=== PATIENT | female | born 1945 | race Caucasian/White ===

== ENCOUNTER 2017-10-17 05:38 | Outpatient (CLI) | payer MEDICARE, MEDICAID ==
[~2017-10-17] VITALS: Ht 157.5 cm; Wt 70.8 kg
[2017-10-17] MEDS ORDERED: AMLO10TA2 PO (12:53)
[2017-10-17] MEDS ORDERED: CELE-63 PO (12:53)
[2017-10-17] MEDS ORDERED: ATOR10TA66 PO (12:53)
[2017-10-17] MEDS ORDERED: METO-370 PO (12:53)
[2017-10-17] MEDS ORDERED: METF500T5 PO (12:53)
== END 2017-10-17 12:54 ==
LOC: PREOP 05:38
PROVIDERS: ATTEND Specialist
DX: Z01.818 Encounter for other preprocedural examination (principal)

== ENCOUNTER 2017-10-19 07:28 | Day surgery (SDC) | payer MEDICARE, MEDICAID ==
[~2017-10-19] VITALS: Ht 157.5 cm; Wt 70.8 kg
[~2017-10-19 07:28] MED LIST: AMLO10TA2 PO; ATOR10TA66 PO; CELE-63 PO; METF500T5 PO; METO-370 PO
--- OUTSIDE RECORDS SUMMARY | 2017-10-19 07:32 | XMS REPORT ---
Author Author SOCRATES ELMORE Organization [facility] Address [address] [place] [address] Care Team Providers Care Nurse Receptionist Name Role Phone SOCRATES ELMORE Unavailable PROBLEMS Type Condition ICD9-CM Code [id number] Code Onset Dates Condition Status SNOMED Code Problem Arthritis M19.90 Active 8509594 Problem Essential hypertension I10 Active 83693611 ALLERGIES No Known Allergies ENCOUNTERS Encounter Location Date Diagnosis [place] [address] [address] Oct, [place] [address] [address] Oct, Acute nasopharyngitis J00 [facility] [address] [address] September, [facility] [address] [address] Aug, [facility] [address] [address] Jun, [facility] [address] [address] Jun, Nail hypertrophy L60.2 ; Onychomycosis B35.1 and Self-care deficit for hygiene R46.0 [facility] [address] [address] May, Arthritis M19.90 and Essential hypertension I10 [facility] [address] [address] Apr, Arthritis M19.90 [facility] [address] [address] Apr, [facility] [address] [id number] [address] Apr, Nail hypertrophy L60.2 ; Onychomycosis B35.1 and Self-care deficit for hygiene R46.0 [facility] [address] [id number], [place] [address] Apr, [facility] [address] [address] Apr, [facility] [address], [place] [address] Apr, [facility] [address], [place] [address] Apr, Essential hypertension I10 ; Weight loss R63.4 and Prediabetes R73.03 IMMUNIZATIONS No Known Immunizations SOCIAL HISTORY Never Assessed REASON FOR VISIT Toenail clipjonnathan-Clayton AGUILAR PLAN OF CARE Activity Details Follow Up 6 Weeks Reason:nail trimming VITAL SIGNS Height 62 in 2017-05-01 Weight 153.4 lbs 2017-05-01 Temperature 98.4 degrees Fahrenheit 2017-05-01 Heart Rate 102 bpm 2017-05-01 Respiratory Rate 20 2017-05-01 BMI 28.05 kg/m2 2017-05-01 Blood pressure systolic 136 mmHg 2017-05-01 Blood pressure diastolic 76 mmHg 2017-05-01 MEDICATIONS Medication Instructions Dosage Frequency Start Date End Date Duration Status Qvar 80 MCG/ACT Inhalation Twice a day 1 puff 12h Active Metoprolol Succinate ER 50 mg Orally Once a day 1 tablet 24h Active Norvasc 10 mg Orally Once a day 1 tablet 24h Active Lipitor 10 mg Orally Once a day 1 tablet 24h Active Metformin HCl 500 mg Orally Twice a day 1 tablet with meals 12h Active RESULTS No Results PROCEDURES Procedure Date Ordered Result Body Site TRIM NAIL(S) 2017-05-01 N/A TRIM NAIL(S) May 01, 2017 [facility] VISIT ESTABLISHED PATIENT May 01, 2017 INSTRUCTIONS MEDICATIONS ADMINISTERED No Known Medications MEDICAL (GENERAL) HISTORY Type Description Date Medical History diabetes Medical History hypertension Surgical History tonsillectomy Surgical History broken fingers surgery Surgical History teeth surgery Surgical History partial hysterectomy Surgical History broken hand with plate Surgical History glaucoma surgery Hospitalization History partial hysterectomy Hospitalization History broken hand surgery
--- OUTSIDE RECORDS SUMMARY | 2017-10-19 07:32 | XMS REPORT ---
Author Author TRISTON SANTOS Organization [facility] Address [address] [place] [address] Care Team Providers Care Bio Medical Technician Name Role Phone TRISTON SANTOS Unavailable PROBLEMS Type Condition ICD9-CM Code [id number] Code Onset Dates Condition Status SNOMED Code Problem Arthritis M19.90 Active 8689193 Problem Essential hypertension I10 Active 24021099 ALLERGIES No Information ENCOUNTERS Encounter Location Date Diagnosis [place] [address] [address] Oct, [place] [address] [address] September, [place] [address] [address] Aug, [facility] [address] [address] Jun, [place] [address] [address] Jun, Nail hypertrophy L60.2 ; Onychomycosis B35.1 and Self-care deficit for hygiene R46.0 [place] [address] [address] [place] [id number] [place] [address] May, Arthritis M19.90 and Essential hypertension I10 [place] [address] [address] Apr, Arthritis M19.90 [place] [address] [address] [place] [id number] [place] [address] Apr, [place] [address] [address] Apr, Nail hypertrophy L60.2 ; Onychomycosis B35.1 and Self-care deficit for hygiene R46.0 [facility] [address] [place] [id number] [address] Apr, [facility] [address] [place] [id number] [address] Apr, [facility] [address] [place] [id number] [address] Apr, [facility] [address] [place] [id number] [address] Apr, Essential hypertension I10 ; Weight loss R63.4 and Prediabetes R73.03 IMMUNIZATIONS No Known Immunizations SOCIAL HISTORY Never Assessed REASON FOR VISIT Waiting for call back PLAN OF CARE VITAL SIGNS MEDICATIONS Unknown Medications RESULTS No Results PROCEDURES No Known procedures INSTRUCTIONS MEDICATIONS ADMINISTERED No Known Medications MEDICAL (GENERAL) HISTORY Type Description Date Medical History diabetes Medical History hypertension Surgical History tonsillectomy Surgical History broken fingers surgery Surgical History teeth surgery Surgical History partial hysterectomy Surgical History broken hand with plate Surgical History glaucoma surgery Hospitalization History partial hysterectomy Hospitalization History broken hand surgery
--- OUTSIDE RECORDS SUMMARY | 2017-10-19 07:32 | XMS REPORT ---
Author Author TRISTON SANTOS Organization [facility] Address [address] [place] [address] Care Team Providers Care Organizational Research Consultant Name Role Phone TRISTON SANTOS Unavailable PROBLEMS Type Condition ICD9-CM Code [id number] Code Onset Dates Condition Status SNOMED Code Problem Arthritis M19.90 Active 3206059 Problem Essential hypertension I10 Active 39688934 ALLERGIES No Information ENCOUNTERS Encounter Location Date Diagnosis [place] [address] [address] Oct, [place] [address] [address] September, [place] [address] [address] Aug, [facility] [address] [address] Jun, [place] [address] [address] Jun, Nail hypertrophy L60.2 ; Onychomycosis B35.1 and Self-care deficit for hygiene R46.0 [place] [address] [place] [id number] [place] [address] May, Arthritis M19.90 and Essential hypertension I10 [place] [address] [address] Apr, Arthritis M19.90 [place] [address] [address] [place] [id number] [place] [address] Apr, [place] [address] [address] Apr, Nail hypertrophy L60.2 ; Onychomycosis B35.1 and Self-care deficit for hygiene R46.0 [facility] [address] [facility] [id number] [place] [address] Apr, [facility] [address] [facility] [id number] [address] Apr, [facility] [address] [facility] [id number] [address] Apr, [facility] [address] [facility] [id number] [address] Apr, Essential hypertension I10 ; Weight loss R63.4 and Prediabetes R73.03 IMMUNIZATIONS No Known Immunizations SOCIAL HISTORY Never Assessed REASON FOR VISIT Med Refills PLAN OF CARE VITAL SIGNS MEDICATIONS Medication Instructions Dosage Frequency Start Date End Date Duration Status Qvar 80 MCG/ACT Inhalation Twice a day 1 puff 12h Active Norvasc 10 mg Orally Once a day 1 tablet 24h Active Metoprolol Succinate ER 50 mg Orally Once a day 1 tablet 24h Active Lipitor 10 mg Orally Once a day 1 tablet 24h Active Metformin HCl 500 mg Orally Twice a day 1 tablet with meals 12h Active RESULTS No Results PROCEDURES No Known procedures [...]
--- OUTSIDE RECORDS SUMMARY | 2017-10-19 07:32 | XMS REPORT ---
Author Author TRISTON SANTOS Organization [facility] Address [address] [place] [address] Care Team Providers Care Electronic Communications Technician Name Role Phone TRISTON SANTOS Unavailable PROBLEMS Type Condition ICD9-CM Code [id number] Code Onset Dates Condition Status SNOMED Code Problem Arthritis M19.90 Active 3834259 Problem Essential hypertension I10 Active 89609732 ALLERGIES No Information ENCOUNTERS Encounter Location Date Diagnosis [place] [address] [address] Oct, [place] [address] [address] September, [place] [address] [address] Aug, [facility] [address] [address] Jun, [place] [address] [address] Jun, Nail hypertrophy L60.2 ; Onychomycosis B35.1 and Self-care deficit for hygiene R46.0 [place] [address] [place] [id number] [place] [address] May, Arthritis M19.90 and Essential hypertension I10 [place] [address] [address] Apr, Arthritis M19.90 [place] [address] [address] [place] [id number] [place] [address] Apr, [place] [address] [address] Apr, Nail hypertrophy L60.2 ; Onychomycosis B35.1 and Self-care deficit for hygiene R46.0 [facility] [address] [place] [id number] [address] Apr, [facility] [address] [place] [id number], [place] [address] Apr, [facility] [address] [place] [id number], [place] [address] Apr, [facility] [address] [place] [id number], [place] [address] Apr, Essential hypertension I10 ; Weight loss R63.4 and Prediabetes R73.03 IMMUNIZATIONS No Known Immunizations SOCIAL HISTORY Never Assessed REASON FOR VISIT PLAN OF CARE VITAL SIGNS MEDICATIONS Unknown [...]
--- OUTSIDE RECORDS SUMMARY | 2017-10-19 07:32 | XMS REPORT ---
Author Author TRISTON SANTOS Organization [facility] Address [address] [place] [address] Care Team Providers Care Acute Coordinator Name Role Phone TRISTON SANTOS Unavailable PROBLEMS Type Condition ICD9-CM Code JQQ57-XB Code Onset Dates Condition Status SNOMED Code Problem Arthritis M19.90 Active 4474902 Problem Essential hypertension I10 Active 27166349 ALLERGIES No Known Allergies ENCOUNTERS Encounter Location Date Diagnosis [place] [address] [address] Oct, [facility] [address] [address] Oct, Acute nasopharyngitis J00 [facility] [address] [address] September, [facility] [address] [address] Aug, [facility] [address] [address] Jun, [facility] [address] [address] Jun, Nail hypertrophy L60.2 ; Onychomycosis B35.1 and Self-care deficit for hygiene R46.0 [facility] [address] [address] May, Arthritis M19.90 and Essential hypertension I10 [facility] [address] [address] Apr, Arthritis M19.90 [facility] [address] [address] Apr, [facility] [address] [facility] [id number] [address] Apr, Nail hypertrophy L60.2 ; Onychomycosis B35.1 and Self-care deficit for hygiene R46.0 [facility] [address] [facility] [id number], [place] [address] Apr, [facility] [address], [place] [address] Apr, [facility] [address] [place] [id number], [place] [address] Apr, [facility] [address], [place] [address]- [address] Apr, Essential hypertension I10 ; Weight loss R63.4 and Prediabetes R73.03 IMMUNIZATIONS No Known Immunizations SOCIAL HISTORY Never Assessed REASON FOR VISIT Pain (acute) Leg-[place] JEFF PLAN OF CARE Activity Details Follow Up 4 Weeks Reason: VITAL SIGNS Height 62 in 2017-05-03 Weight 153.2 lbs 2017-05-03 Temperature 98.5 degrees Fahrenheit 2017-05-03 Heart Rate 84 bpm 2017-05-03 Respiratory Rate 18 2017-05-03 BMI 28.02 kg/m2 2017-05-03 Blood pressure systolic 130 mmHg 2017-05-03 Blood pressure diastolic 68 mmHg 2017-05-03 MEDICATIONS Medication Instructions Dosage Frequency Start Date End Date Duration Status Diclofenac Sodium 75 MG Orally Twice a day 1 tablet with food or milk 12h Apr, May, 30 day(s) Active Metoprolol Succinate ER 50 mg Orally Once a day 1 tablet 24h Active Norvasc 10 mg Orally Once a day 1 tablet 24h Active Metformin HCl 500 mg Orally Twice a day 1 tablet with meals 12h Active Walker - use with ambulation Apr, Active Lipitor 10 mg Orally Once a day 1 tablet 24h Active Qvar 80 MCG/ACT Inhalation Twice a day 1 puff 12h Active Walker - as directed Apr, Active RESULTS No Results PROCEDURES Procedure Date Ordered Result Body Site COUNTS INCLUDE 234 BEDS AT THE [facility] VISIT ESTABLISHED PATIENT May 03, 2017 INSTRUCTIONS MEDICATIONS ADMINISTERED No Known Medications MEDICAL (GENERAL) HISTORY Type Description Date Medical History diabetes Medical History hypertension Surgical History tonsillectomy Surgical History broken fingers surgery Surgical History teeth surgery Surgical History partial hysterectomy Surgical History broken hand with plate Surgical History glaucoma surgery Hospitalization History partial hysterectomy Hospitalization History broken hand surgery
--- OUTSIDE RECORDS SUMMARY | 2017-10-19 07:32 | XMS REPORT ---
Author Author TRISTON SANTOS Organization [facility] Address [address] [place] [address] Care Team Providers Care Welfare Director Name Role Phone TRISTON SANTOS Unavailable PROBLEMS Type Condition ICD9-CM Code JQA54-HO Code Onset Dates Condition Status SNOMED Code Problem Arthritis M19.90 Active 2445125 Problem Essential hypertension I10 Active 77576528 ALLERGIES No Information ENCOUNTERS Encounter Location Date Diagnosis [place] [address] [address] Oct, [place] [address] [address] Oct, Acute nasopharyngitis J00 [facility] [address] [address] September, [facility] [address] [address] Aug, [facility] [address] [address] Jun, [place] [address] [address] Jun, Nail hypertrophy L60.2 ; Onychomycosis B35.1 and Self-care deficit for hygiene R46.0 [facility] [address] [address] May, Arthritis M19.90 and Essential hypertension I10 [facility] [address] [address] Apr, Arthritis M19.90 [facility] [address] [address] Apr, [facility] [address] [id number], [place] [address] Apr, Nail hypertrophy L60.2 ; Onychomycosis B35.1 and Self-care deficit for hygiene R46.0 [facility] [address] [id number], [place] [address] Apr, [facility] [address] [id number], [place] [address] Apr, [facility] [address] [id number], [place] [address] Apr, [facility] [address] [id number], [place] [address] Apr, Essential hypertension I10 ; Weight loss R63.4 and Prediabetes R73.03 IMMUNIZATIONS No Known Immunizations SOCIAL HISTORY Never Assessed REASON FOR VISIT Leg pain PLAN OF CARE VITAL SIGNS MEDICATIONS Unknown [...]
--- OUTSIDE RECORDS SUMMARY | 2017-10-19 07:32 | XMS REPORT ---
Author Author TRISTON SANTOS Organization [facility] Address [address] [place] [address] Care Team Providers Care Level Vial Sealer Name Role Phone TRISTON SANTOS Unavailable PROBLEMS Type Condition ICD9-CM Code [id number] Code Onset Dates Condition Status SNOMED Code Problem Arthritis M19.90 Active 4429735 Problem Essential hypertension I10 Active 75881695 ALLERGIES No Known Allergies ENCOUNTERS Encounter Location Date Diagnosis [place] [address] [address] Oct, [place] [address] [address] September, [place] [address] [address] Aug, [facility] [address] [address] Jun, [place] [address] [address] Jun, Nail hypertrophy L60.2 ; Onychomycosis B35.1 and Self-care deficit for hygiene R46.0 [facility] [address] [place] [id number] [place] [address] May, Arthritis M19.90 and Essential hypertension I10 [place] [address] [address] Apr, Arthritis M19.90 [facility] [address] [address] Apr, [place] [address] [address] Apr, Nail hypertrophy L60.2 ; Onychomycosis B35.1 and Self-care deficit for hygiene R46.0 [facility] [address] [facility] [id number] [address] Apr, [facility] [address] [facility] [id number], [place] [address] Apr, [facility] [address] [facility] [id number], [place] [address] Apr, [facility] [address] [facility] [id number], [place] [address] Apr, Essential hypertension I10 ; Weight loss R63.4 and Prediabetes R73.03 IMMUNIZATIONS No Known Immunizations SOCIAL HISTORY Never Assessed REASON FOR VISIT Establish Care, leg pain, needs toenials cut--H Alfonso AGUILAR PLAN OF CARE Activity Details Follow Up Will call after lab Reason: VITAL SIGNS Height 62 in 2017-04-09 Weight 154.7 lbs 2017-04-09 Temperature 98.4 degrees Fahrenheit 2017-04-09 Heart Rate 72 bpm 2017-04-09 Respiratory Rate 20 2017-04-09 BMI 28.29 kg/m2 2017-04-09 Blood pressure systolic 142 mmHg 2017-04-09 Blood pressure diastolic 88 mmHg 2017-04-09 MEDICATIONS Medication Instructions Dosage Frequency Start Date End Date Duration Status Metoprolol Succinate ER 50 MG Orally Once a day 1 tablet 24h Active Qvar 80 MCG/ACT Inhalation Twice a day 1 puff 12h Active Metformin HCl 500 MG Orally Twice a day 1 tablet with meals 12h Active Norvasc 10 MG Orally Once a day 1 tablet 24h Active Lipitor 10 MG Orally Once a day 1 tablet 24h Active RESULTS No Results PROCEDURES Procedure Date Ordered Result Body Site COMPREHEN METABOLIC PANEL Apr 09, 2017 ASSAY THYROID STIM HORMONE Apr 09, 2017 [facility] VISIT NEW PATIENT Apr 09, 2017 C-REACTIVE PROTEIN Apr 09, 2017 COMPLETE CBC W/AUTO DIFF WBC Apr 09, 2017 GLYCATED HEMOGLOBIN TEST Apr 09, 2017 VENIPUNCT, ROUTINE* Apr 09, 2017 INSTRUCTIONS MEDICATIONS ADMINISTERED No Known Medications MEDICAL (GENERAL) HISTORY Type Description Date Medical History diabetes Medical History hypertension Surgical History tonsillectomy Surgical History broken fingers surgery Surgical History teeth surgery Surgical History partial hysterectomy Surgical History broken hand with plate Surgical History glaucoma surgery Hospitalization History partial hysterectomy Hospitalization History broken hand surgery
[2017-10-19] MEDS ORDERED: LIDOCAINE PF 1% 2 ML AMP IR PRN (07:45)
[2017-10-19] MEDS ORDERED: POVIDONE (BETADINE) OPHTH SOLN 5% 30 ML OP ONE (07:45)
[2017-10-19] MEDS ORDERED: VANCOMYCIN/BSS (COMPOUNDED) 10 MG/ML SYR OP ONE (07:45)
[2017-10-19] MEDS ORDERED: EPINEPHrine INJECTION 1 MG/ML AMP INJ ONE (07:45)
[2017-10-19] MEDS ORDERED: TIMOLOL MALEATE 0.5% 5 ML (TIMOPTIC) BTL OU PRN (07:45)
[2017-10-19 07:49] VITALS: BP 180/102
[2017-10-19] MEDS: TETRACAINE 0.5% OPHTH SOLN 4 ML BTL (SINGLE DOSE ONLY) OU PRN ×4 (07:54→08:17)
[2017-10-19] MEDS: PHENYLEPHRINE 10% OPHTH (NEO-SYN) 5 ML BTL OU SCH ×3 (08:05→08:18)
[2017-10-19] MEDS: CYCLOPENTOLATE 1% (CYCLOGYL) 2 ML DROPS OP SCH ×3 (08:05→08:18)
--- NOTE | 2017-10-19 09:03 | Ophthalmologist Pre-Op Note ---
Pre-Operative Progress Note H&P Reviewed The H&P was reviewed, patient examined and no changes noted. Date H&P Reviewed: Oct 19, 2017 Time H&P Reviewed: 09:02 Pre-Op Dx Cataract, Left Eye MUSA BECKER MD Oct 19, 2017 09:02
--- NOTE | 2017-10-19 09:43 | Ophthalmology Operative Report ---
Cataract removal/placement IOL PREOPERATIVE DIAGNOSIS: Cataract Left Eye POSTOPERATIVE DIAGNOSIS: Cataract Left Eye PROCEDURE: Cataract removal and placement of posterior chamber implant, left eye SURGEON: Woody Becker ANESTHESIA: Topical with sedation COMPLICATIONS: None ESTIMATED BLOOD LOSS: Minimal DESCRIPTION OF PROCEDURE: After proper informed consent was obtained, the patient, a 72 female, was taken to the Operating Room and the left eye was anesthetized with tetracaine. The left eye was then prepped and draped in the usual manner. A wire lid speculum was placed. A paracentesis was made at the left hand position. Preservative free lidocaine was injected into the anterior chamber followed by viscoelastic. A clear corneal incision was made in the temporal position. A capsulorrhexis was preformed and the central nuclear and cortical material were removed. The posterior capsule was polished and an Gray 24.0 [id number] IOL was placed into the capsular bag. The residual viscoelastic was aspirated and balanced saline solution was injected into the anterior chamber. 0.1 ml of Vancomycin (1mg/0.1ml ) was injected into the anterior chamber. The wound was checked and found to be water tight. The patient tolerated the procedure well without complications. WOODY BECKER MD Oct 19, 2017 09:43
[2017-10-19 09:55] VITALS: BP 150/82
--- NOTE | 2017-10-19 13:36 | Anesthesia-General Post-Op ---
MAC Patient Condition Mental Status/LOC: Same as Preop Cardiovascular: Satisfactory Nausea/Vomiting: Absent Respiratory: Satisfactory Pain: Controlled Complications: Absent Post Op Complications Complications None Follow Up Care/Instructions Patient Instructions None needed. Anesthesiology Discharge Order Discharge Order Patient was doing well after surgery, no complaints, stable vital signs, no apparent adverse anesthesia problems. JUAN DIEGO NIX DO Oct 19, 2017 13:36
== END 2017-10-19 09:55 | disposition home or self-care (01) ==
LOC: SDC 07:28
PROVIDERS: ATTEND Specialist
DX: E11.36 Type 2 diabetes mellitus with diabetic cataract (principal); I10 Essential (primary) hypertension; J45.909 Unspecified asthma, uncomplicated; Z79.84 Long term (current) use of oral hypoglycemic drugs; Z79.899 Other long term (current) drug therapy
CPT/HCPCS: 82962

== ENCOUNTER 2017-11-14 05:41 | Outpatient (CLI) | payer MEDICARE, MEDICAID | END 2017-11-14 12:56 | disposition home or self-care (01) | LOC: PREOP 05:41 | PROVIDERS: ATTEND Specialist | DX: Z01.818 Encounter for other preprocedural examination (principal) ==

== ENCOUNTER 2017-11-16 07:47 | Day surgery (SDC) | payer MEDICARE, MEDICAID ==
[~2017-11-16] VITALS: Ht 157.5 cm; Wt 70.8 kg
--- OUTSIDE RECORDS SUMMARY | 2017-11-16 07:51 | XMS REPORT ---
Author Author SOCRATES ELMORE Organization [facility] [place] Address [address] [place] [address] Care Team Providers Care Actimize Architect Name Role Phone SOCRATES ELMORE Unavailable PROBLEMS Type Condition ICD9-CM Code MAP38-MY Code Onset Dates Condition Status SNOMED Code Problem Arthritis M19.90 Active 4437436 Problem Essential hypertension I10 Active 41896487 ALLERGIES No Information ENCOUNTERS Encounter Location Date Diagnosis [place] [address] [address] Oct, Nail dystrophy L60.3 ; Nail hypertrophy L60.2 and Self-care deficit for hygiene R46.0 [place] [address] [address] Oct, Acute nasopharyngitis J00 [place] [address] [address] September, [place] [address] [address] Aug, [place] [address] [address] Jun, [place] [address] [address] Jun, Nail hypertrophy L60.2 ; Onychomycosis B35.1 and Self-care deficit for hygiene R46.0 [place] [address] [address] May, Arthritis M19.90 and Essential hypertension I10 [place] [address] [address] Apr, Arthritis M19.90 [place] [address], [place] [address] Apr, [facility] [place] [address], [place] [address] Apr, Nail hypertrophy L60.2 ; Onychomycosis B35.1 and Self-care deficit for hygiene R46.0 [facility] [place] [address] [place] [address] Apr, [facility] [place] [address] [place] [address] Apr, [facility] [place] [address] [place] [id number] [place] [address] Apr, [facility] [place] [address] [place] [address] Apr, Essential hypertension I10 ; Weight loss R63.4 and Prediabetes R73.03 IMMUNIZATIONS No Known Immunizations SOCIAL HISTORY Never Assessed REASON FOR VISIT Toenail clipping-[place] [facility] PLAN OF CARE Activity Details Follow Up 2 Months Reason:nail trimming VITAL SIGNS Height 62 in 2017-06-12 Weight 157.2 lbs 2017-06-12 Temperature 98.3 degrees Fahrenheit 2017-06-12 Heart Rate 78 bpm 2017-06-12 Respiratory Rate 18 2017-06-12 BMI 28.75 kg/m2 2017-06-12 Blood pressure systolic 132 mmHg 2017-06-12 Blood pressure diastolic 86 mmHg 2017-06-12 MEDICATIONS Medication Instructions Dosage Frequency Start Date End Date Duration Status Norvasc 10 mg Orally Once a day 1 tablet 24h Active Lipitor 10 mg Orally Once a day 1 tablet 24h Active Metformin HCl 500 mg Orally Twice a day 1 tablet with meals 12h Active Metoprolol Succinate ER 50 mg Orally Once a day 1 tablet 24h Active Diclofenac Sodium 75 MG Orally Twice a day 1 tablet with food or milk 12h 30 Active Walker - use with ambulatioin Apr, Active Qvar 80 MCG/ACT Inhalation Twice a day 1 puff 12h Active RESULTS No Results PROCEDURES Procedure Date Ordered Result Body Site TRIM NAIL(S) 2017-06-12 completed TRIM NAIL(S) Jun 12, 2017 [facility] VISIT ESTABLISHED PATIENT Jun 12, 2017 INSTRUCTIONS MEDICATIONS ADMINISTERED No Known Medications MEDICAL (GENERAL) HISTORY Type Description Date Medical History diabetes Medical History hypertension Surgical History tonsillectomy Surgical History broken fingers surgery Surgical History teeth surgery Surgical History partial hysterectomy Surgical History broken hand with plate Surgical History glaucoma surgery Surgical History Catacract 10/20 Hospitalization History partial hysterectomy Hospitalization History broken hand surgery
--- OUTSIDE RECORDS SUMMARY | 2017-11-16 07:51 | XMS REPORT ---
Author Author TRISTON SANTOS [facility] Address [address] [place] [address] Care Team Providers Care Shade Classifier Name Role Phone TRISTON SANTOS Unavailable PROBLEMS Type Condition ICD9-CM Code LKI75-ON Code Onset Dates Condition Status SNOMED Code Problem Arthritis M19.90 Active 2413421 Problem Essential hypertension I10 Active 80103046 ALLERGIES No Known Allergies ENCOUNTERS Encounter Location Date Diagnosis [place] [address] [address] Oct, Nail dystrophy L60.3 ; Nail hypertrophy L60.2 and Self-care deficit for hygiene R46.0 [place] [address] [address] Oct, Acute nasopharyngitis J00 [place] [address] [address] September, [place] [address] [address] Aug, [place] [address] [address] Jun, [place] [address] [address] Jun, Nail hypertrophy L60.2 ; Onychomycosis B35.1 and Self-care deficit for hygiene R46.0 [place] [address] [address] May, Arthritis M19.90 and Essential hypertension I10 [place] [address] [address] Apr, Arthritis M19.90 [facility] [address] [address] Apr, [facility] [address] [address] Apr, Nail hypertrophy L60.2 ; Onychomycosis B35.1 and Self-care deficit for hygiene R46.0 [place] [address] [address] Apr, [facility] [address] [place] [id number] [address] Apr, [place] [address] [address] [place] [id number] [place] [address] Apr, [place] [address] [address] Apr, Essential hypertension I10 ; Weight loss R63.4 and Prediabetes R73.03 IMMUNIZATIONS No Known Immunizations SOCIAL HISTORY Never Assessed REASON FOR VISIT f/u tabitha Buckley RN, Micro, DAST PLAN OF CARE Activity Details Follow Up 4 Months Reason: VITAL SIGNS Height 62 in 2017-06-05 Weight 156 lbs 2017-06-05 Temperature 98.3 degrees Fahrenheit 2017-06-05 Heart Rate 88 bpm 2017-06-05 Respiratory Rate 18 2017-06-05 BMI 28.53 kg/m2 2017-06-05 Blood pressure systolic 132 mmHg 2017-06-05 Blood pressure diastolic 62 mmHg 2017-06-05 MEDICATIONS Medication Instructions Dosage Frequency Start Date End Date Duration Status Metoprolol Succinate ER 50 mg Orally Once a day 1 tablet 24h Active Walker - use with ambulatioin Apr, Active Norvasc 10 mg Orally Once a day 1 tablet 24h Active Metformin HCl 500 mg Orally Twice a day 1 tablet with meals 12h Active Walker - use with ambulation Apr, Active Diclofenac Sodium 75 MG Orally Twice a day 1 tablet with food or milk 12h 30 Active Qvar 80 MCG/ACT Inhalation Twice a day 1 puff 12h Active Lipitor 10 mg Orally Once a day 1 tablet 24h Active RESULTS No Results PROCEDURES Procedure Date Ordered Result Body Site [facility] VISIT ESTABLISHED PATIENT Jun 05, 2017 INSTRUCTIONS MEDICATIONS ADMINISTERED No Known Medications [...]
--- OUTSIDE RECORDS SUMMARY | 2017-11-16 07:51 | XMS REPORT ---
Author Author TRISTON SANTOS [facility] Address [address] [place] [address] Care Team Providers Care Extrusion Bender Name Role Phone TRISTON SANTOS Unavailable PROBLEMS Type Condition ICD9-CM Code [id number] Code Onset Dates Condition Status SNOMED Code Problem Arthritis M19.90 Active 9328556 Problem Essential hypertension I10 Active 17273485 ALLERGIES No Information ENCOUNTERS Encounter Location Date Diagnosis [place] [address] [address] Oct, Nail dystrophy L60.3 ; Nail hypertrophy L60.2 and Self-care deficit for hygiene R46.0 [place] [address] [address] Oct, Acute nasopharyngitis J00 [place] [address] [address] September, [place] [address] [address] Aug, [place] [address] [address] Jun, [place] [address] [address] Jun, Nail hypertrophy L60.2 ; Onychomycosis B35.1 and Self-care deficit for hygiene R46.0 [place] [address] [address] May, Arthritis M19.90 and Essential hypertension I10 [place] [address] [address] Apr, Arthritis M19.90 [place] [address], [place] [address] Apr, [place] [address] [place] [address] Apr, Nail hypertrophy L60.2 ; Onychomycosis B35.1 and Self-care deficit for hygiene R46.0 [place] [address] [place] [address] Apr, [place] [address], [place] [address] Apr, [place] [address] [place] [address] Apr, [place] [address], [place] [address] Apr, Essential hypertension I10 ; Weight loss R63.4 and Prediabetes R73.03 IMMUNIZATIONS No Known Immunizations SOCIAL HISTORY Never Assessed REASON FOR VISIT QVAR note PLAN OF CARE VITAL SIGNS MEDICATIONS Unknown [...]
[2017-11-16] MEDS: TETRACAINE 0.5% OPHTH SOLN 4 ML BTL (SINGLE DOSE ONLY) OU PRN ×4 (07:57→08:19)
[2017-11-16 07:59] VITALS: BP 147/84
[2017-11-16] MEDS ORDERED: EPINEPHrine INJECTION 1 MG/ML AMP INJ ONE (08:00)
[2017-11-16] MEDS ORDERED: VANCOMYCIN/BSS (COMPOUNDED) 10 MG/ML SYR OP ONE (08:00)
[2017-11-16] MEDS ORDERED: POVIDONE (BETADINE) OPHTH SOLN 5% 30 ML OP ONE (08:00)
[2017-11-16] MEDS ORDERED: LIDOCAINE PF 1% 2 ML AMP IR PRN (08:00)
[2017-11-16] MEDS ORDERED: TIMOLOL MALEATE 0.5% 5 ML (TIMOPTIC) BTL OU PRN (08:00)
[2017-11-16] MEDS: PHENYLEPHRINE 10% OPHTH (NEO-SYN) 5 ML BTL OU SCH ×3 (08:06→08:19)
[2017-11-16] MEDS: CYCLOPENTOLATE 1% (CYCLOGYL) 2 ML DROPS OP SCH ×3 (08:06→08:19)
[2017-11-16 08:15] VITALS: BP 147/84
[2017-11-16] MEDS ORDERED: MIDAZOLAM 2 MG/2 ML (VERSED) VIAL ONE (08:35)
--- NOTE | 2017-11-16 08:43 | Ophthalmologist Pre-Op Note ---
Pre-Operative Progress Note H&P Reviewed The H&P was reviewed, patient examined and no changes noted. Date H&P Reviewed: Nov 16, 2017 Time H&P Reviewed: 08:43 Pre-Op Dx Cataract, Right Eye MUSA BECKER MD Nov 16, 2017 08:43
--- NOTE | 2017-11-16 09:14 | Ophthalmology Operative Report ---
Cataract removal/placement IOL PREOPERATIVE DIAGNOSIS: Cataract Right Eye POSTOPERATIVE DIAGNOSIS: Cataract Right Eye PROCEDURE: Cataract removal and placement of posterior chamber implant, right eye SURGEON: Woody Becker ANESTHESIA: Topical with sedation COMPLICATIONS: None ESTIMATED BLOOD LOSS: Minimal DESCRIPTION OF PROCEDURE: After proper informed consent was obtained, the patient, a 72 female, was taken to the Operating Room and the right eye was anesthetized with tetracaine. The right eye was then prepped and draped in the usual manner. A wire lid speculum was placed. A paracentesis was made at the left hand position. Preservative free lidocaine was injected into the anterior chamber followed by viscoelastic. A clear corneal incision was made in the temporal position. A capsulorrhexis was preformed and the central nuclear and cortical material were removed. The posterior capsule was polished and Gray 23.5 [id number] IOL was placed into the capsular bag. The residual viscoelastic was aspirated and balanced saline solution was injected into the anterior chamber. Vancomycin was injected into the anterior chamber. The wound was checked and found to be water tight. The patient tolerated the procedure well without complications. WOODY BECKER MD Nov 16, 2017 09:14
[2017-11-16 09:22] VITALS: BP 137/73
--- NOTE | 2017-11-16 09:28 | Anesthesia-General Post-Op ---
MAC Patient Condition Mental Status/LOC: Same as Preop Cardiovascular: Satisfactory Nausea/Vomiting: Absent Respiratory: Satisfactory Pain: Controlled Complications: Absent Post Op Complications Complications None Follow Up Care/Instructions Patient Instructions None needed. Anesthesiology Discharge Order Discharge Order Patient is doing well, no complaints, stable vital signs, no apparent adverse anesthesia problems. No complications reported per nursing. ZHEN NIELSON CRNA Nov 16, 2017 09:28
== END 2017-11-16 09:22 | disposition home or self-care (01) ==
LOC: SDC 07:47
PROVIDERS: ATTEND Specialist
DX: E11.36 Type 2 diabetes mellitus with diabetic cataract (principal); I10 Essential (primary) hypertension; J45.909 Unspecified asthma, uncomplicated; Z79.84 Long term (current) use of oral hypoglycemic drugs; Z79.899 Other long term (current) drug therapy
CPT/HCPCS: 82962